=== PATIENT | female | born 1980 | race Two or more races ===

== ENCOUNTER 2016-11-11 22:52 | Emergency (ER) | payer MEDICAID, OTHER ==
[~2016-11-11] VITALS: Ht 154.9 cm; Wt 72.6 kg
[~2016-11-11 22:52] MED LIST: DOXYCYCLINE MO100 MG ORAL; LEVOFLOXACIN500 MG ORAL; PRENATAL VITAM1 EACH PO
[2016-11-11] MEDS ORDERED: NKM (22:58)
--- NOTE | 2016-11-11 23:13 | Emergency Room Report ---
History of Present Illness General Chief Complaint: Complications Source: Patient Present Illness HPI Is a 36-year-old female who is approximately 9 weeks . She is A+ blood type. She presents with chief complaint of spotting yesterday and then had severe cramping and passed a large she did tissue. Also now with bleeding. Denies any fever chills but no nausea no vomiting. Never had this problem before. She arty had an outpatient ultrasound at 6 weeks which showed IUP but no heartbeat. No trauma. Allergies: Coded Allergies: No Known Allergies (Unverified , 09/30/13) Patient History Past Medical History: see triage record, old chart reviewed Past Surgical History: other Pertinent Family History: none Social History: Denies: smoking Now: Yes Immunizations: other Reviewed Nursing Documentation: PMH: Agreed, PSxH: Agreed Nursing Documentation-PMH Past Medical History: No History, Except For Hx Cardiac Problems: No Hx Cancer: No Hx Gastrointestinal Problems: No Hx Neurological Problems: No Hx Dizziness: Yes - during Review of Systems Eye: Denies: blurred vision, eye pain ENT: Denies: ear pain, nose congestion, throat swelling Respiratory: Denies: cough, shortness of breath Cardiovascular: Denies: chest pain, palpitations Gastrointestinal: Denies: abdominal pain, diarrhea, nausea, vomiting Musculoskeletal: Denies: back pain, joint pain Skin: Denies: rash Neurological: Denies: headache, numbness Endocrine: Denies: increased thirst, increased urine Hematologic/Lymphatic: Denies: easy bruising All Other Systems: negative except mentioned in HPI Physical Exam Vital Signs Date Time Temp Pulse Resp B/P Pulse Ox O2 Delivery O2 Flow Rate FiO2 11/11/16 22:53 98.2 102 17 147/79 98 Room Air vitals unremarkable Sp02 EP Interpretation: reviewed, normal General Appearance: well appearing, no apparent distress, alert Head: normocephalic, atraumatic Eyes: bilateral eye EOMI, bilateral eye PERRL ENT: hearing grossly normal, normal pharynx Neck: full range of motion, supple, no meningismus Respiratory: chest non-tender, lungs clear, normal breath sounds Cardiovascular #1: regular rate, rhythm, no murmur Gastrointestinal: normal bowel sounds, non tender, no mass, no organomegaly, no bruit, non-distended Musculoskeletal: back normal, gait/station normal, normal range of motion Psychiatric: mood/affect normal Skin: warm/dry Medical Decision Making Diagnostic Impression: Primary Impression: Spontaneous ER Course She was spontaneous . She is otherwise stable. Bleeding slowed down. We'll discharge home. Her blood type is A+. Last Vital Signs Date Time Temp Pulse Resp B/P Pulse Ox O2 Delivery O2 Flow Rate FiO2 11/11/16 22:53 98.2 102 17 147/79 98 Room Air Status: improved Disposition: HOME, SELF-CARE Condition: Stable Scripts Ibuprofen* (MOTRIN*) 600 Mg Tablet 600 MG ORAL THREE TIMES A DAY, #30 TAB 0 Refills Prov: KATHLEEN CUEVAS M.D. 11/12/16 Additional Instructions: Your level here is 8129. Followup with your Dr. in 3-5 days. Return if symptom worsen. KATHLEEN CUEVAS M.D. Nov 11, 2016 23:13
[2016-11-11] MEDS ORDERED: Ketorolac 30mg Inj IV ONE (23:15)
[2016-11-12] MEDS ORDERED: IBUPROFEN600 MG ORAL (00:45)
[2016-11-12 00:50] VITALS: BP 147/79
== END 2016-11-12 00:52 | disposition home or self-care (01) ==
LOC: EMR 23:35
DX: O03.9 Complete or unspecified spontaneous abortion without complication (principal)
CPT/HCPCS: 36415; 84702; 96374; 96375; 99284; J1885

== ENCOUNTER 2017-11-14 10:28 | Emergency (ER) | payer OTHER ==
[~2017-11-14] VITALS: Ht 154.9 cm; Wt 73.5 kg
[~2017-11-14 10:28] MED LIST changes: +IBUPROFEN600 MG ORAL; +NKM
[2017-11-14 11:28] LABS: APPEARANCE,URINE SLIGHTLY CLOUDY; BILIRUBIN, URINE NEGATIVE (NEGATIVE); GLUCOSE, URINE (UA) NEGATIVE (NEGATIVE); KETONES,URINE NEGATIVE (NEGATIVE); LEUKOCYTE ESTERASE ,URINE 3+ (NEGATIVE); NITRITE,URINE NEGATIVE (NEGATIVE); PH,URINE 7 (4.5-8.0); PROTEIN,URINE 2+ (NEGATIVE); UROBILINOGEN,URINE NORMAL MG/DL (0.0-1.0)
[2017-11-14 11:29] LABS: COLOR,URINE YELLOW
[2017-11-14 12:09] LABS: BASOPHILS % (AUTO) 1.3 % (0.0-2.0); EOSINOPHILS % (AUTO) 0.7 % (0.0-3.0); HEMOGLOBIN 12.8 G/DL (12.0-16.0); LYMPHOCYTES % (AUTO) 24.2 % (20.0-45.0); MEAN CORPUSCULAR VOLUME 89 FL (80-99); MONOCYTES % (AUTO) 5.6 % (1.0-10.0); NEUTROPHILS % (AUTO) 68.1 % (45.0-75.0); PLATELET COUNT 224 K/UL (150-450); RED BLOOD COUNT 4.06 M/UL (4.20-5.40); RED CELL DISTRIBUTION WIDTH 10.7 % (11.6-14.8)
[2017-11-14 12:13] LABS: ANION GAP 8 mmol/L (5-15); BLOOD UREA NITROGEN 10 mg/dL (7-18); CARBON DIOXIDE 21 MMOL/L (21-32); CHLORIDE 103 MMOL/L (98-107); CREATININE 0.5 MG/DL (0.55-1.30); POTASSIUM 3.8 MMOL/L (3.5-5.1); SODIUM 132 MMOL/L (136-145)
[2017-11-14 12:25] LABS: ALANINE AMINOTRANSFERASE 30 U/L (12-78); ALBUMIN 3.7 G/DL (3.4-5.0); ALKALINE PHOSPHATASE 43 U/L (46-116); ASPARTATE AMINO TRANSFERASE 22 U/L (15-37); BILIRUBIN,TOTAL 0.3 MG/DL (0.2-1.0)
--- NOTE | 2017-11-14 13:53 | Emergency Room Report ---
History of Present Illness General Chief Complaint: Complications Source: Patient Present Illness HPI Patient is a 37-year-old female presented after increased vaginal bleeding. Patient prior history of being approximately 9 weeks. The patient reported having minimally increased increased abdominal discomfort. Patient not been vomiting. She was having mild bleeding less than her period. She reports having previous ultrasound. Allergies: Coded Allergies: No Known Allergies (Unverified , 09/30/13) Patient History Now: Yes - 9 weeks : 6 Para: 5 Reviewed Nursing Documentation: PMH: Agreed; PSxH: Agreed Nursing Documentation-PMH Past Medical History: No History, Except For Hx Cardiac Problems: No Hx Cancer: No Hx Gastrointestinal Problems: No Hx Neurological Problems: No Hx Dizziness: Yes - during Review of Systems All Other Systems: negative except mentioned in HPI Physical Exam Vital Signs Date Time Temp Pulse Resp B/P (MAP) Pulse Ox O2 Delivery O2 Flow Rate FiO2 11/14/17 10:39 98.6 83 18 116/74 97 Room Air 98.6 Sp02 EP Interpretation: reviewed, normal General Appearance: normal inspection, well appearing, no apparent distress, alert, GCS 15 Head: atraumatic ENT: normal ENT inspection, hearing grossly normal, normal voice Neck: normal inspection, full range of motion, supple, no bony tend Respiratory: normal inspection, lungs clear, normal breath sounds, no respiratory distress, no retraction, no wheezing Cardiovascular #1: regular rate, rhythm, no edema Gastrointestinal: normal inspection, normal bowel sounds, non tender, soft, no guarding, no hernia Genitourinary: no CVA tenderness, deferred Musculoskeletal: normal inspection, back normal, normal range of motion Neurologic: normal inspection, alert, responsive, speech normal Psychiatric: normal inspection, judgement/insight normal, mood/affect normal Skin: normal inspection, normal color, no rash Medical Decision Making Diagnostic Impression: Primary Impression: Threatened ER Course Patient is a for vaginal bleeding. Differential diagnosis included was not limited to incomplete , ectopic , a completed , threatened among others.Because of complexity of patient's case laboratory testing and imaging studies were ordered. The pelvic ultrasound showed intrauterine with adequate heart tones. The patient is advised to have a repeat exam with her DESIGNER ARCHITECT in 1-2 days. The patient is advised pelvic rest.The patient is advised to follow up with primary care doctor in 1-2 days. Patient is advised to return if any worsening condition or if any changes in status that are concerning. This report is dictated with Bit[employer] drying room supervisor software which may occasionally lead to discrepancies related to use of this software. Labs Test 11/14/17 10:52 11/14/17 11:45 Urine Color Yellow Urine Appearance Slightly cloudy Urine pH 7 (4.5-8.0) Urine Specific [place] 1.015 (1.005-1.035) Urine Protein 2+ (NEGATIVE) Urine Glucose (UA) Negative (NEGATIVE) Urine Ketones Negative (NEGATIVE) Urine Occult Blood 5+ (NEGATIVE) Urine Nitrite Negative (NEGATIVE) Urine Bilirubin Negative (NEGATIVE) Urine Urobilinogen Normal MG/DL (0.0-1.0) Urine Leukocyte Esterase 3+ (NEGATIVE) Urine RBC 10-15 /HPF (0 - 2) Urine WBC 5-10 /HPF (0 - 2) Urine Squamous Epithelial Cells Many /LPF (NONE/OCC) Urine Amorphous Sediment Few /LPF (NONE) Urine Bacteria Few /HPF (NONE) White Blood Count 9.0 K/UL (4.8-10.8) Red Blood Count 4.06 M/UL (4.20-5.40) Hemoglobin 12.8 G/DL (12.0-16.0) Hematocrit 36.0 % (37.0-47.0) Mean Corpuscular Volume 89 FL (80-99) Mean Corpuscular Hemoglobin 31.6 PG (27.0-31.0) Mean Corpuscular Hemoglobin Concent 35.7 G/DL (32.0-36.0) Red Cell Distribution Width 10.7 % (11.6-14.8) Platelet Count 224 K/UL (150-450) Mean Platelet Volume 7.1 FL (6.5-10.1) Neutrophils (%) (Auto) 68.1 % (45.0-75.0) Lymphocytes (%) (Auto) 24.2 % (20.0-45.0) Monocytes (%) (Auto) 5.6 % (1.0-10.0) Eosinophils (%) (Auto) 0.7 % (0.0-3.0) Basophils (%) (Auto) 1.3 % (0.0-2.0) Prothrombin Time 10.3 SEC (9.30-11.50) Prothromb Time International Ratio 1.0 (0.9-1.1) Activated Partial Thromboplast Time 26 SEC (23-33) Sodium Level 132 MMOL/L (136-145) Potassium Level 3.8 MMOL/L (3.5-5.1) Chloride Level 103 MMOL/L (98-107) Carbon Dioxide Level 21 MMOL/L (21-32) Anion Gap 8 mmol/L (5-15) Blood Urea Nitrogen 10 mg/dL (7-18) Creatinine 0.5 MG/DL (0.55-1.30) Estimat Glomerular Filtration Rate > 60 mL/min (>60) Glucose Level 142 MG/DL (74-106) Calcium Level 9.0 MG/DL (8.5-10.1) Total Bilirubin 0.3 MG/DL (0.2-1.0) Aspartate Amino Transf (AST/SGOT) 22 U/L (15-37) Alanine Aminotransferase (ALT/SGPT) 30 U/L (12-78) Alkaline Phosphatase 43 U/L (46-116) Total Protein 7.5 G/DL (6.4-8.2) Albumin 3.7 G/DL (3.4-5.0) Globulin 3.8 g/dL Albumin/Globulin Ratio 1.0 (1.0-2.7) Lipase 109 U/L (73-393) Human Chorionic Gonadotropin, Quant 12031 mIU/mL (1-6) Last Vital Signs Date Time Temp Pulse Resp B/P (MAP) Pulse Ox O2 Delivery O2 Flow Rate FiO2 11/14/17 10:39 98.6 83 18 116/74 97 Room Air 98.6 Status: improved Disposition: HOME, SELF-CARE Condition: Stable Patient Instructions: Threatened Miscarriage, Khya-xt-Ivef Wei Snow MD Nov 14, 2017 13:53
[2017-11-14 14:10] VITALS: BP 120/78
[2017-11-14 14:11] VITALS: BP 120/78
--- NOTE | 2017-11-14 15:08 | Diagnostic Imaging Report ---
Indication: Vaginal spotting for 2 days, positive test Technique: Transabdominal and transvaginal images Comparison: 09/30/2013 Findings: Uterus measures 9.6 cm length by 5.8 cm AP. Within the endometrium, there is a gestational sac with a pole. There is positive heart activity, heart rate 163 bpm. The crown-rump length is 29 mm, corresponding to an estimated gestational age of 9 weeks 5 days. A 7 x 6 mm hypoechoic focus is seen adjacent to the gestational sac. This appears to have its long axis perpendicular to the gestational sac, and appears extend into the endometrium as a linear echogenic focus. There is questionably a 3.3 cm diameter subserosal fibroid in the lower uterine segment. There is a small cervical nabothian cyst. Small amount of free fluid is seen in the pelvic cul-de-sac The right ovary measures 2.6 cm length. The left ovary measures 2.8 cm length. Impression: 9 week 5 day single live intrauterine . 7 x 6 mm hypoechoic focus adjacent to the gestational sac. Suspect that this represents residua of a section scar, but the small subchorionic hemorrhage is also possible Small amount of free cul-de-sac fluid, likely physiologic Negative for adnexal mass Possible 3 cm subserosal lower uterine segment fibroid
== END 2017-11-14 14:11 | disposition home or self-care (01) ==
LOC: EMR 11:13
DX: O20.0 Threatened abortion (principal); Z3A.09 9 weeks gestation of pregnancy
CPT/HCPCS: 36415; 76830; 76856; 80053; 81003; 83690; 84702; 85025; 85610; 85730; 86850; 86900; 86901; 99284

== ENCOUNTER 2017-12-19 08:18 | Emergency (ER) | payer OTHER ==
[~2017-12-19] VITALS: Ht 154.9 cm; Wt 74.8 kg
[2017-12-19 08:30] VITALS: BP 110/64
[2017-12-19 08:56] LABS: APPEARANCE,URINE CLEAR; BILIRUBIN, URINE NEGATIVE (NEGATIVE); COLOR,URINE PALE YELLOW; GLUCOSE, URINE (UA) NEGATIVE (NEGATIVE); KETONES,URINE NEGATIVE (NEGATIVE); LEUKOCYTE ESTERASE ,URINE 3+ (NEGATIVE); NITRITE,URINE NEGATIVE (NEGATIVE); PH,URINE 8 (4.5-8.0); PROTEIN,URINE NEGATIVE (NEGATIVE); UROBILINOGEN,URINE NORMAL MG/DL (0.0-1.0)
[2017-12-19 09:30] VITALS: BP 116/74
[2017-12-19 09:30] LABS: BASOPHILS % (AUTO) 0.7 % (0.0-2.0); EOSINOPHILS % (AUTO) 1.1 % (0.0-3.0); HEMATOCRIT 32.9 % (37.0-47.0); HEMOGLOBIN 11.5 G/DL (12.0-16.0); LYMPHOCYTES % (AUTO) 27.2 % (20.0-45.0); MEAN CORPUSCULAR VOLUME 89 FL (80-99); MONOCYTES % (AUTO) 5.1 % (1.0-10.0); NEUTROPHILS % (AUTO) 65.9 % (45.0-75.0); PLATELET COUNT 217 K/UL (150-450); RED BLOOD COUNT 3.69 M/UL (4.20-5.40); RED CELL DISTRIBUTION WIDTH 11.2 % (11.6-14.8); WHITE BLOOD COUNT 7.7 K/UL (4.8-10.8)
--- NOTE | 2017-12-19 09:32 | Emergency Room Report ---
History of Present Illness General Chief Complaint: Complications Source: Patient Present Illness HPI This patient is SAB 1. The patient states she has noted blood in her urine for the past 2 days. She states chills all has a pressure sensation in her pelvis. She does not note any bleeding on her underwear and states this is only with urination. She is 14 weeks and being followed closely at an OB clinic. She is very nervous about this because last year and November she did have a miscarriage. She denies fever or chills. She denies nausea or vomiting. She denies chest pain or shortness of breath. She denies headache. She has no other complaints. Allergies: Coded Allergies: No Known Allergies (Unverified , 09/30/13) Patient History Past Medical History: see triage record, other - Heart murmur Past Surgical History: none Social History: Denies: smoking, alcohol use, drug use Last Menstrual Period: 09/13/2017 Now: Yes : 7 Para: 5 Reviewed Nursing Documentation: PMH: Agreed; PSxH: Agreed Nursing Documentation-PMH Past Medical History: No History, Except For Hx Cardiac Problems: No - heart murmur Hx Cancer: No Hx Gastrointestinal Problems: No Hx Neurological Problems: No Hx Dizziness: Yes - during Review of Systems All Other Systems: negative except mentioned in HPI Physical Exam Vital Signs Date Time Temp Pulse Resp B/P (MAP) Pulse Ox O2 Delivery O2 Flow Rate FiO2 12/19/17 08:27 98.2 69 14 125/74 98 Room Air 98.2 Sp02 EP Interpretation: reviewed, normal General Appearance: no apparent distress, alert, GCS 15, non-toxic Head: normocephalic, atraumatic Eyes: bilateral eye normal inspection, bilateral eye PERRL ENT: hearing grossly normal, normal pharynx, no angioedema, normal voice Neck: full range of motion, supple/symm/no masses Respiratory: chest non-tender, lungs clear, normal breath sounds, speaking full sentences Cardiovascular #1: regular rate, rhythm, no edema Gastrointestinal: normal bowel sounds, non tender, soft, non-distended, no guarding, no rebound, other - gravid Rectal: deferred Musculoskeletal: back normal, gait/station normal, normal range of motion, non- tender Neurologic: alert, oriented x3, responsive, motor strength/tone normal, sensory intact, speech normal Psychiatric: judgement/insight normal, memory normal, mood/affect normal, no suicidal/homicidal ideation Skin: normal color, no rash, warm/dry, well hydrated Medical Decision Making Diagnostic Impression: Primary Impression: UTI (urinary tract infection) Additional Impression: Hematuria ER Course This patient underwent OB ultrasound. She has a live 15 week that is appropriately sized for dates. She has reported hematuria. There is no evidence of vaginal bleeding. There is no subchorionic hemorrhage. The patient 's amniotic fluid index is lower than expected. The patient was instructed to follow-up closely with her OB. I will go ahead and treat with a course of antibiotics as a precaution although, the patient's urinalysis was contaminated. Laboratory Tests Test 12/19/17 08:36 12/19/17 09:00 Urine Color Pale yellow Urine Appearance Clear Urine pH 8 (4.5-8.0) Urine Specific [place] 1.015 (1.005-1.035) Urine Protein Negative (NEGATIVE) Urine Glucose (UA) Negative (NEGATIVE) Urine Ketones Negative (NEGATIVE) Urine Blood 4+ (NEGATIVE) H Urine Nitrite Negative (NEGATIVE) Urine Bilirubin Negative (NEGATIVE) Urine Urobilinogen Normal MG/DL (0.0-1.0) Urine Leukocyte Esterase 3+ (NEGATIVE) H Urine RBC 2-4 /HPF (0 - 2) H Urine WBC 5-10 /HPF (0 - 2) H Urine Squamous Epithelial Cells Many /LPF (NONE/OCC) H Urine Bacteria Few /HPF (NONE) White Blood Count 7.7 K/UL (4.8-10.8) Red Blood Count 3.69 M/UL (4.20-5.40) L Hemoglobin 11.5 G/DL (12.0-16.0) L Hematocrit 32.9 % (37.0-47.0) L Mean Corpuscular Volume 89 FL (80-99) Mean Corpuscular Hemoglobin 31.2 PG (27.0-31.0) H Mean Corpuscular Hemoglobin Concent 35.1 G/DL (32.0-36.0) Red Cell Distribution Width 11.2 % (11.6-14.8) L Platelet Count 217 K/UL (150-450) Mean Platelet Volume 6.5 FL (6.5-10.1) Neutrophils (%) (Auto) 65.9 % (45.0-75.0) Lymphocytes (%) (Auto) 27.2 % (20.0-45.0) Monocytes (%) (Auto) 5.1 % (1.0-10.0) Eosinophils (%) (Auto) 1.1 % (0.0-3.0) Basophils (%) (Auto) 0.7 % (0.0-2.0) Sodium Level 133 MMOL/L (136-145) L Potassium Level 3.9 MMOL/L (3.5-5.1) Chloride Level 103 MMOL/L (98-107) Carbon Dioxide Level 20 MMOL/L (21-32) L Anion Gap 10 mmol/L (5-15) Blood Urea Nitrogen 7 mg/dL (7-18) Creatinine 0.5 MG/DL (0.55-1.30) L Estimate Glomerular Filtration Rate > 60 mL/min (>60) Glucose Level 129 MG/DL (74-106) H Calcium Level 8.9 MG/DL (8.5-10.1) Total Bilirubin 0.4 MG/DL (0.2-1.0) Aspartate Amino Transferase (AST) 25 U/L (15-37) Alanine Aminotransferase (ALT) 24 U/L (12-78) Alkaline Phosphatase 41 U/L (46-116) L Total Protein 7.2 G/DL (6.4-8.2) Albumin 3.2 G/DL (3.4-5.0) L Globulin 4.0 g/dL Albumin/Globulin Ratio 0.8 (1.0-2.7) L Human Chorionic Gonadotropin, Quant 77414 mIU/mL (1-6) H CT/MRI/US Diagnostic Results CT/MRI/US Diagnostic Results : Imaging Test Ordered: Pelvic US Impression 15 week live fetus. See official report for measurements. Last Vital Signs Date Time Temp Pulse Resp B/P (MAP) Pulse Ox O2 Delivery O2 Flow Rate FiO2 12/19/17 08:30 97.0 68 11 110/64 100 Room Air 97.0 Status: improved Disposition: HOME, SELF-CARE Condition: Improved Referrals: [facility],REFERR[facility] (PCP) Zoe Syed DO Dec 19, 2017 09:32
[2017-12-19 09:44] LABS: ANION GAP 10 mmol/L (5-15); BLOOD UREA NITROGEN 7 mg/dL (7-18); CALCIUM 8.9 MG/DL (8.5-10.1); CARBON DIOXIDE 20 MMOL/L (21-32); CHLORIDE 103 MMOL/L (98-107); CREATININE 0.5 MG/DL (0.55-1.30); POTASSIUM 3.9 MMOL/L (3.5-5.1); SODIUM 133 MMOL/L (136-145)
[2017-12-19 09:49] LABS: ALANINE AMINOTRANSFERASE 24 U/L (12-78); ALBUMIN 3.2 G/DL (3.4-5.0); ALBUMIN/GLOBULIN RATIO 0.8 (1.0-2.7); ALKALINE PHOSPHATASE 41 U/L (46-116); ASPARTATE AMINO TRANSFERASE 25 U/L (15-37); BILIRUBIN,TOTAL 0.4 MG/DL (0.2-1.0)
[2017-12-19] MEDS ORDERED: CEPHALEXIN500 MG ORAL (11:38)
[2017-12-19 11:44] VITALS: BP 123/64
[2017-12-19 11:54] VITALS: BP 125/68
--- NOTE | 2017-12-19 14:35 | Diagnostic Imaging Report ---
Indication: Pelvic pressure, pain, positive test, blood in urine Technique: Transabdominal and transvaginal images Comparison: 11/14/2017 Findings: There is a live intrauterine , demonstrating positive motion and positive heart activity, heart rate 144 bpm. Posterior fundal placenta, clears the internal cervical os. Cervix appears closed. No subchorionic hemorrhage demonstrated. Amniotic fluid index is 11.4 cm measurements as follows: Biparietal diameter 29 mm, 15 weeks 2 days; head circumference one 16 mm, 15 weeks 5 days; abdominal circumference 93 mm, 15 weeks 4 days; femur length 15 mm, 14 weeks 3 days. Estimated gestational age by average of ultrasound measurements is 15 weeks 2 days. Estimated date of delivery 06/10/2018. This represents appropriate interval growth from the previous study. Previously noted anterior hypoechoic area is no longer evident. Only limited assessment of the anatomy, due to early stage of , emergent nature of the exam. Grossly normal spine, cord insertion, three-vessel cord. Impression: 15 week 2 day, by average of ultrasound measurements, single live intrauterine . No unusual features
== END 2017-12-19 12:00 | disposition home or self-care (01) ==
LOC: EMR 08:51
DX: O23.42 Unspecified infection of urinary tract in pregnancy, second trimester (principal); Z3A.15 15 weeks gestation of pregnancy
CPT/HCPCS: 36415; 76805; 80053; 81003; 84702; 85025; 86850; 86900; 86901; 96360; 96361; 99284

== ENCOUNTER 2018-08-11 10:23 | Emergency (ER) | payer OTHER ==
[~2018-08-11] VITALS: Ht 154.9 cm; Wt 68.0 kg
[~2018-08-11 10:23] MED LIST changes: +CEPHALEXIN500 MG ORAL
--- NOTE | 2018-08-11 10:42 | NUR ---
ED Nurse Note: Pt came in from home due to R eye swelling and pain 2/10 namrata x 2 days. Visual acuity bilateral eyes: 20/30. AOx4, VSS. Will cont to monitor.
[2018-08-11] MEDS ORDERED: GARAMYCIN 0.3%1 DROP RIGHT EYE (11:06)
[2018-08-11] MEDS ORDERED: AUGMENTIN 875-1 EAC1 ORAL (11:06)
[2018-08-11] MEDS ORDERED: BENADRYL25 MG ORAL (11:06)
--- NOTE | 2018-08-11 11:14 | Emergency Room Report ---
History of Present Illness General Chief Complaint: Eye Problems Source: Patient, Medical Record Present Illness HPI Patient presents with complaints of puffiness and redness to the lower right eyelid started several days ago patient denies any pain to the eye itself denies any chest pain or shortness of breath denies any change with vision There was some minimal clear discharge previously but denies any currently Denies any sore throat denies any trauma Denies any foreign body sensation As the lower lid has become more inflamed patient presents to the ER denies any other contact or other source initially Allergies: Coded Allergies: No Known Allergies (Unverified , 09/30/13) Patient History Past Medical History: see triage record Pertinent Family History: none Last Menstrual Period: 08/2018 Now: No : 7 Para: 5 Reviewed Nursing Documentation: PMH: Agreed; PSxH: Agreed Nursing Documentation-PMH Hx Cardiac Problems: No - heart murmur Hx Cancer: No Hx Gastrointestinal Problems: No Hx Neurological Problems: No Hx Dizziness: Yes - during Review of Systems All Other Systems: negative except mentioned in HPI Physical Exam Vital Signs Date Time Temp Pulse Resp B/P (MAP) Pulse Ox O2 Delivery O2 Flow Rate FiO2 08/11/18 10:32 98.1 83 18 94 Room Air Sp02 EP Interpretation: reviewed, normal General Appearance: well appearing, no apparent distress Eyes: right eye other - Increased erythema and mild swelling noted to the right lower eyelid appears to be well localized; bilateral eye PERRL, bilateral eye EOMI ENT: normal pharynx Neck: supple Respiratory: lungs clear, no retraction, no accessory muscle use Cardiovascular #1: regular rate, rhythm Gastrointestinal: non tender Musculoskeletal: normal inspection Neurologic: normal inspection, alert, oriented x3, responsive Skin: other - as above Lymphatic: no adenopathy Medical Decision Making Diagnostic Impression: Primary Impression: cellulitis ER Course Multiple differentials and consideration including but not limited to, orbital cellulitis, questionable or abscess conjunctivitis periorbital abscess/ cellulitis The area in question appears to be fairly well localized there is some edema/ allergic reaction type appearance this as well Patient will have initial treatment regarding possible infection/allergy requires close follow-up for ophthalmology referral Given the lack of any proptosis or, limited mobility further initial imaging was not obtained , Last Vital Signs Date Time Temp Pulse Resp B/P (MAP) Pulse Ox O2 Delivery O2 Flow Rate FiO2 08/11/18 10:32 98.1 83 18 94 Room Air Status: unchanged Disposition: HOME, SELF-CARE Condition: Stable Scripts Diphenhydramine Hcl* (BENADRYL*) 25 Mg Capsule 25 MG ORAL Q8HR PRN for Itching for 7 Days, CAP Prov: Holly Magallon DO 08/11/18 Amoxicillin/Potassium Clav 875-125* (AUGMENTIN 875-125 TABLET*) 1 Each Tablet 1 TAB ORAL TWICE A DAY, #14 TAB Prov: Holly Magallon DO 08/11/18 Gentamicin Sulfate (Gentamicin Sulfate) 5 Ml Drops 1 DROP RIGHT EYE TID for 7 Days, ML Prov: Holly Magallon DO 08/11/18 Referrals: CLY[facility] FIGUEREDO Patient Instructions: Cellulitis, [id number] Additional Instructions: Patient is provided with the discharge instructions notified to follow up with primary doctor in the next 2-3 days otherwise return to the er with any worsening symptoms. Please note that this report is being documented using DRAGON technology. This can lead to erroneous entry secondary to incorrect interpretation by the dictating instrument. Holly Magallon DO August 11, 2018 11:14
[2018-08-11 11:16] VITALS: BP 116/78
--- NOTE | 2018-08-11 11:18 | NUR ---
ER DISCHARGE NOTE: Patient is cleared to be discharged per ERMD, pt is aox4, on room air, with stable vital signs. pt was given dc and prescription instructions, pt was able to verbalize understanding, pt id band removed without complications. pt is able to ambulate with steady gait. pt took all belongings.
== END 2018-08-11 11:15 | disposition home or self-care (01) ==
LOC: EMR 11:10
DX: H00.032 Abscess of right lower eyelid (principal)
CPT/HCPCS: 99283